=== PATIENT | female | born 1970 | race African-American/Black ===

== ENCOUNTER 2017-09-11 13:06 | Emergency (ER) | payer OTHER ==
[2017-09-11] MEDS ORDERED: 0.9 % SODIUM CHLORIDE 1,000 ML IV ONE (13:37)
[2017-09-11] MEDS ORDERED: ONDANSETRON HCL/PF 4 MG/ 2ML VIAL IVP ONE (13:38)
--- NOTE | 2017-09-11 13:40 | ED Physician Documentation ---
General Adult - HISTORIAN Historian: patient - HPI Stated Complaint: vomiting, loose stool Chief Complaint: General Adult Onset: hours Timing: still present Severity: moderate Further Comments: yes (Pt is a 47 yo female with n/v/diarrhea since this am. Pt has had approx 6 bms, and 4 episodes vomiting. No blood seen in bm. No hematemasis. No fever.) - ROS CONST: other (malaise) EYES/ENT: none CVS/RESP: none GI/: abdominal pain, vomiting, nausea, diarrhea MS/SKIN/LYMPH: none NEURO/PSYCH: other (lightheaded) - PAST HX Past History: other (DM) Allergies/Adverse Reactions: Allergies Allergy/AdvReac Type Severity Reaction Status Date / Time No Known Allergies Allergy Verified 09/11/17 13:30 Home Medications: Ambulatory Orders Medication Instructions Recorded Glimepiride [Amaryl] 4 mg PO D 07/15/16 Metformin HCl [Glucophage] 500 mg PO BID 07/15/16 Ciprofloxacin HCl [Cipro] 500 mg PO BID #10 tablet 09/11/17 - SOCIAL HX Smoking History: non-smoker - FAMILY HX Family History: No - VITAL SIGNS Vital Signs: Vital Signs Temp Pulse Resp BP Pulse Ox 97.8 F 89 16 120/87 98 09/11/17 13:31 09/11/17 13:31 09/11/17 13:31 09/11/17 13:31 09/11/17 13:31 - REVIEWED ASSESSMENTS Nursing Assessment Reviewed: Yes Vitals Reviewed: Yes Progress - Progress Progress: NS 1 L IVF Zofran 4 mg IV improved hyperglycemia. Pt wishes to go home and take her meds. ? uti with 1+ occult blood Rx Ciprofloxacin 500 mg. Take one every 12 hrs for 5 days. f/u pcp re DM eval/tx ED Results Lab/Radiology - Orders Orders: ED Orders Category Date Time Status Place IV Lock 1T Care 09/11/17 13:37 Ordered CBC/PLATELET/DIFF Routine Lab 09/11/17 Ordered CMP Routine Lab 09/11/17 Ordered UA [URINALYSIS] Routine Lab 09/11/17 Ordered NORMAL SALINE @ 1000 MLS/HR ( 1000ml BOLUS) Med 09/11/17 13:37 Ordered 0.9 % Sodium Chloride [Normal Saline] 1,000 ml IV Q1H Ondansetron HCl/Pf [Zofran 4 mg/2 ml] Med 09/11/17 13:38 Once 4 mg IVP NOW ONE General Adult Physical Exam - PHYSICAL EXAM GENERAL APPEARANCE: mild distress EENT: pharynx normal, dry mucous membranes NECK: normal inspection, supple RESPIRATORY: no resp distress, chest non-tender, breath sounds normal CVS: reg rate & rhythm, heart sounds normal ABDOMEN: soft, no organomegaly, normal bowel sounds, tenderness (mild diffuse) BACK: normal inspection, no CVA tenderness SKIN: warm/dry, normal color EXTREMITIES: non-tender, normal range of motion, no evidence of injury NEURO: oriented X3, motor nml, sensation nml Discharge Clincal Impression: nausea/vomiting/diarrhea, Hyperglycemia, hematuria Prescriptions: Ciprofloxacin HCl [Cipro] 500 mg PO BID #10 tablet Referrals: Primary Doctor,No [Primary Care Provider] - Condition: Stable Disposition: 01 HOME, SELF-CARE Decision to Admit: NO Decision Time: 14:53
[2017-09-11 13:58] LABS: APPEARANCE,URINE Slightly Cloudy (CLEAR); COLOR,URINE Yellow (YELLOW); OCCULT BLOOD,URINE 1+ (NEGATIVE); PH URINE 5.5 (5.0 - 8.0); UROBILINOGEN URINE 0.2 Eu (0.2-1.0)
[2017-09-11 13:59] LABS: BASOPHILS % 0.3 (0.0-1.5); EOSINOPHILS % 2.8 % (0.0-6.8); MEAN CORPUSCULAR HEMOGLOBIN 27.8 pg (28.0-34.0); MEAN CORPUSCULAR VOLUME 88.1 fl (80.0-100.0); MONOCYTES % 3.1 % (0.0-11.0); NEUTROPHILS # 7.5 # k/uL (1.4-7.7)
[2017-09-11 14:04] LABS: AMORPHOUS SEDIMENT,UR FEW (NEGATIVE)
[2017-09-11 14:21] LABS: eGFR (African) > 60; eGFR (Non-African) > 60
[2017-09-11 15:16] VITALS: BP 112/65
== END 2017-09-11 15:14 | disposition home or self-care (01) ==
LOC: ED 13:06
DX: R11.2 Nausea with vomiting, unspecified (principal); R19.7 Diarrhea, unspecified; R73.9 Hyperglycemia, unspecified; R31.9 Hematuria, unspecified
CPT/HCPCS: 80053; 81002; 85025; J2405; J7030; 96361; 96374; 99283; S1016

== ENCOUNTER 2017-10-26 15:42 | Emergency (ER) | payer SELFPAY ==
--- NOTE | 2017-10-26 15:46 | ED Physician Documentation ---
Upper Respiratory Symptoms - HISTORIAN Historian: patient - HPI Stated Complaint: cough Chief Complaint: Cough/ Upper Respiratory Onset: days ago (7) Duration: constant Context: denies: recent foreign travel, insect bite(s), tick(s), recent chemotherapy, multiple patients Severity: mild Associated Symptoms: fever, chills, sweating, sinus drainage, productive cough, shortness of breath, hurts to breathe, headache. denies: earache Worsened by Deep Breath: Yes Further Comments: yes (she states she started with a cough, fever, fatigue 7 days ago. 3 days following she started with N/V and she had 2 days of this symptom. She has continued to have a cough. She feels like there is mucus in her chest and she needed to cough it up and cannot. She is not sure if she has had a fever today. She has been exposed to the Flu by a cousin and she wants to be tested. She has taken multiple things OTC with no relief) - ROS CONST/EYES: weakness (fatigue ) CVS/RESP: shortness of breath LYMPH: denies: rash GI/: vomiting, nausea. denies: problems urinating NEURO/PSYCH: denies: dizziness MS/SKIN: muscle aches. denies: rash - PAST HX Lung Disease: none PE Risk Factors: none Other History: diabetes Type 2 Surgeries/Procedures: other Immunizations: referred to PCP Allergies/Adverse Reactions: Allergies Allergy/AdvReac Type Severity Reaction Status Date / Time No Known Allergies Allergy Verified 10/26/17 16:08 Home Medications: Ambulatory Orders Medication Instructions Recorded Glimepiride [Amaryl] 4 mg PO D 07/15/16 Metformin HCl [Glucophage] 500 mg PO BID 07/15/16 - SOCIAL HX Smoking History: non-smoker Alcohol Use: none Drug Use: none - FAMILY HX Family History: none - VITAL SIGNS Vital Signs: Vital Signs Temp Pulse Resp BP Pulse Ox 96.7 F L 84 19 174/100 100 10/26/17 15:45 10/26/17 15:45 10/26/17 15:45 10/26/17 15:45 10/26/17 15:45 - REVIEWED ASSESSMENTS Nursing Assessment Reviewed: Yes Vitals Reviewed: Yes ED Results Lab/Radiology - Orders Orders: ED Orders Category Date Time Status INFLUENZA A&B Stat Lab 10/26/17 15:56 Ordered Ipratropium/Albuterol Sulfate [Duoneb] Med 10/26/17 15:56 Discontinued 3 ml NEB NOW ONE Upper Respiratory Symptoms - EXAM General Appearance: no acute distress, alert EENT: eyes nml inspection Respiratory: no resp. distress, breath sounds nml, no pain on inspiration Abdomen: non-tender, nml bowel sounds CVS: reg rate & rhythm, heart sounds normal, equal pulses, no murmur Skin: color nml, no rash, warm,dry Extremities: non-tender Neuro/Psych: oriented x3, neuro intact, mood/affect nml Discharge Clincal Impression: Cough Referrals: Primary Doctor,No [Primary Care Provider] - 2 Days Additional Instructions: Proair 2 puffs by mouth every 4=6 hours as needed for cough Tessalon Pearls 100 mg take 1 by mouth every 8 hours as needed for cough Inrease fluids Rest Return to ER or PCP for any increase or increase in concerns Condition: Stable Disposition: 01 HOME, SELF-CARE Decision to Admit: NO Date of Decison to Admit: 10/26/17 Decision Time: 16:21
[2017-10-26 16:08] VITALS: BP 174/100
[2017-10-26] MEDS: IPRATROPIUM/ALBUTEROL SULFATE 3 ML AMPUL.NEB NEB ONE (16:14)
== END 2017-10-26 16:35 | disposition home or self-care (01) ==
LOC: ED 15:42
DX: R05 Cough (principal)
CPT/HCPCS: 87400; 94640; 99283

== ENCOUNTER 2019-09-03 10:55 | Emergency (ER) | payer OTHER ==
--- NOTE | 2019-09-03 11:16 | ED Physician Documentation ---
General Adult - HISTORIAN Historian: patient - HPI Stated Complaint: headache and chest pain Chief Complaint: Headache Onset: hours (5) Timing: still present Severity: moderate (04/01) Further Comments: yes (she states this am she started with a headache and mid chest pain since this am. No injury. she has not had any OTC meds. No fever. She has a history of migraines she has no jaw pain or sweating or pressure . She has increased pain when she touches her chest) - ROS CONST: no problems EYES/ENT: none CVS/RESP: chest pain. denies: shortness of breath, cough GI/: none MS/SKIN/LYMPH: none NEURO/PSYCH: headache - PAST HX Past History: hypertension Other History: diabetes Type 2 Surgeries/Procedures: none Immunizations: UTD Allergies/Adverse Reactions: Allergies Allergy/AdvReac Type Severity Reaction Status Date / Time No Known Allergies Allergy Verified 10/26/17 16:08 Home Medications: Ambulatory Orders Medication Instructions Recorded Glimepiride [Amaryl] 4 mg PO D 07/15/16 metFORMIN HCl [Glucophage] 500 mg PO BID 07/15/16 Albuterol Sulfate [Proair HFA] 2 inh IH Q4-6 PRN #1 [id number].aer.[email or web address] 10/26/17 Benzonatate [Tessalon] 100 mg PO TID PRN #20 capsule 10/26/17 - SOCIAL HX Smoking History: cigarettes, greater than 1 pack/day Alcohol Use: none Drug Use: none - FAMILY HX Family History: No - VITAL SIGNS Vital Signs: Vital Signs Temp Pulse Resp BP Pulse Ox 174/100 10/26/17 16:35 - REVIEWED ASSESSMENTS Nursing Assessment Reviewed: Yes Vitals Reviewed: Yes Progress - Progress Progress: 1212: Discussed current findings and she reports decrease in pain and is resting quietly DG General Adult Physical Exam - PHYSICAL EXAM GENERAL APPEARANCE: no distress EENT: eye inspection normal, pharynx normal, no signs of dehydration NECK: normal inspection RESPIRATORY: no resp distress, breath sounds normal, other (tenderness with palpation mid chest only ) CVS: reg rate & rhythm, heart sounds normal ABDOMEN: soft, normal bowel sounds, no distension, non-tender BACK: normal inspection, no CVA tenderness SKIN: warm/dry EXTREMITIES: non-tender, normal range of motion, no evidence of injury, no edema NEURO: oriented X3 Discharge Clincal Impression: Headache Qualifiers: Headache type: unspecified Headache chronicity pattern: acute headache Intractability: not intractable Qualified Code(s): R51 - Headache Chest pain Qualifiers: Chest pain type: unspecified Qualified Code(s): R07.9 - Chest pain, unspecified Referrals: Primary Doctor,No [Primary Care Provider] - 2 Days Comments: 1. OTC meds as directed as needed for pain 2. Increase fluids 3. Rest today 4. Follow up with PCP in 2-4 days 5. Return to ER for any increased concerns Condition: Stable Disposition: 01 HOME, SELF-CARE Decision to Admit: NO Date of Decison to Admit: 09/03/19 Decision Time: 12:24
[2019-09-03 11:31] LABS: BASOPHILS % 0.5 % (0.0-1.5)
[2019-09-03] MEDS: ONDANSETRON HCL/PF 4 MG/ 2ML VIAL IVP ONE (11:32)
[2019-09-03] MEDS: 0.9 % SODIUM CHLORIDE 1,000 ML IV ONE (11:35)
[2019-09-03] MEDS: KETOROLAC TROMETHAMINE 30 MG/1ML VIAL IV ONE (11:40)
[2019-09-03 11:52] LABS: eGFR (Non-African) > 60
--- NOTE | 2019-09-03 12:03 | Diagnostic Imaging Report ---
PATIENT MR#: [id number] PATIENT PATIENT NAME: VARSHA MEDEIROS DATE OF : 1970 REFERRING PHYSICIAN: Zeynep Orr EXAM DATE: 09/03/2019 ACCESSION NUMBER: [id number] EXAM DESCRIPTION: CT BRAIN W/O CONTRAST CT brain noncontrast Date of study: time : 09/03/2019 11:54:29 AM User : Rebecca Horner SEVERE HEADACHE (DICOM Hx) (DICOM Hx) TECHNIQUE: 2.5 mm contiguous axial of the brain, noncontrast. Sagittal and coronal multiplanar reconstructions. FINDINGS: There is no evidence of intracranial mass effect, hemorrhage, or acute infarct. The lateral ventricle s are symmetrical and the 4th ventricle is midline without shift. No acute brain parenchymal changes or extra-axial flu id collections are identified. The posterior fossa contents are within normal limits. The calvarium is intact. The visualized sinuses and mastoid air cells are clear. IMPRESSION: No acute intracranial process. Read by: Dr. Travon Luque Transcribed by: Transcribed Date: Electronically signed by: Dr. Travon Luque Date signed: 09/03/2019 12:02:43 PM
--- NOTE | 2019-09-03 12:06 | Diagnostic Imaging Report ---
PATIENT MR#: [id number] PATIENT PATIENT NAME: VARSHA MEDEIROS DATE OF : 1970 REFERRING PHYSICIAN: Zeynep Orr EXAM DATE: 09/03/2019 ACCESSION NUMBER: [id number] EXAM DESCRIPTION: CHEST 1VIEW CHEST, TWO VIEWS CLINICAL INDICATION: WEAKNESS (Hx) / Note time : 09/03/2019 11:54:55 AM User : Rebecca Horner WEAKNESS (DICOM Hx ) (DICOM Hx) FINDINGS: No prior. Heart size is normal and the lungs are clear and no pneumothorax or pleural effus ion is seen. Vaguely seen calcified granuloma right upper lobe. Impression: No acute process. Read by: Dr. Travon Luque Transcribed by: Transcribed Date: Electronically signed by: Dr. Travon Luque Date signed: 09/03/2019 12:05:42 PM
[2019-09-03 12:47] VITALS: BP 140/77
[2019-09-03 17:25] LABS: APPEARANCE,URINE CLEAR (CLEAR); COLOR,URINE YELLOW (YELLOW); OCCULT BLOOD,URINE 1+ (NEGATIVE); PH URINE 6.5 (5.0 - 8.0); UROBILINOGEN URINE 0.2 Eu (0.2-1.0)
== END 2019-09-03 12:45 | disposition home or self-care (01) ==
LOC: ED 10:55
DX: R51 Headache (principal); R07.9 Chest pain, unspecified
CPT/HCPCS: 70450; 71045; 80053; 81002; 84484; 85025; 96361; 96374; 96375; 99282; 99284; J1885; J2405; J7030; S1016

== ENCOUNTER 2019-10-23 14:49 | Emergency (ER) | payer SELFPAY ==
--- NOTE | 2019-10-23 15:08 | ED Physician Documentation ---
General Adult - HISTORIAN Historian: patient - HPI Stated Complaint: Chest pain Chief Complaint: Cough/ Upper Respiratory Onset: days ago (7) Timing: better Severity: mild Further Comments: yes (She reports cough. non productive - helped with NyQuil. no other OTC meds. No shortness of air. She states she was told by her work today she needed a work note. Denies chest pain at this time) - ROS CONST: recent illness EYES/ENT: denies: sore throat, nasal drainage, nasal congestion CVS/RESP: cough. denies: shortness of breath - PAST HX Past History: none Immunizations: UTD Allergies/Adverse Reactions: Allergies Allergy/AdvReac Type Severity Reaction Status Date / Time lisinopril AdvReac Cough Verified 10/23/19 15:13 Home Medications: Ambulatory Orders Medication Instructions Recorded Glimepiride [Amaryl] 4 mg PO D 07/15/16 metFORMIN HCl [Glucophage] 500 mg PO BID 07/15/16 amLODIPine BESYLATE [Norvasc] 5 mg PO DAILY 09/03/19 Pioglitazone HCl [Actos] 1 tab PO DAILY 10/23/19 - SOCIAL HX Smoking History: non-smoker Alcohol Use: none Drug Use: none - FAMILY HX Family History: No - VITAL SIGNS Vital Signs: Vital Signs Temp Pulse Resp BP Pulse Ox 98.2 F 75 18 158/92 99 10/23/19 14:49 10/23/19 14:49 10/23/19 14:49 10/23/19 14:49 10/23/19 14:49 - REVIEWED ASSESSMENTS Nursing Assessment Reviewed: Yes Vitals Reviewed: Yes General Adult Physical Exam - PHYSICAL EXAM GENERAL APPEARANCE: no distress EENT: eye inspection normal, ENT inspection normal, pharynx normal, no signs of dehydration NECK: normal inspection RESPIRATORY: no resp distress, chest non-tender CVS: reg rate & rhythm, heart sounds normal ABDOMEN: soft, normal bowel sounds SKIN: warm/dry, normal color EXTREMITIES: non-tender, normal range of motion NEURO: oriented X3 Discharge Clincal Impression: Cough Referrals: Primary Doctor,No [Primary Care Provider] - 2 Days Comments: 1. Tessalon Pearls 100 mg take 1 by mouth every 8 hours as needed for cough 2. Continue OTC meds as directed as needed for symptom management 3. Follow up with PCP if no improvement in 2-4 days 4. Return to ER for any increased concerns Condition: Stable Disposition: 01 HOME, SELF-CARE Decision to Admit: NO Date of Decison to Admit: 10/23/19 Decision Time: 15:22
[2019-10-23 15:28] VITALS: BP 147/86
== END 2019-10-23 15:27 | disposition home or self-care (01) ==
LOC: ED 14:49
DX: R05 Cough (principal)
CPT/HCPCS: 93005; 99283; 99284; S1016